=== PATIENT | male | born 1985 | race Caucasian/White ===

== ENCOUNTER 2020-03-13 09:27 | Emergency (ER) | payer SELFPAY ==
[~2020-03-13] VITALS: Ht 172.7 cm; Wt 113.6 kg
[2020-03-13 09:58] LABS: BASOPHILS % (AUTO) 0.4 % (0.0-2.0); EOSINOPHILS % (AUTO) 1.4 % (1.0-6.0); HEMATOCRIT 51.7 % (41-53); HEMOGLOBIN 17.3 g/dL (13.5-17.5); LYMPHOCYTES # (AUTO) 1.5 K/uL (1.0-4.8); MEAN CORPUSCULAR HEMOGLOBIN 30.2 pg (26.0-34.0); MEAN CORPUSCULAR HGB CONC 33.5 G/dL (31.0-37.0); MEAN CORPUSCULAR VOLUME 90 fL (80-100); MONOCYTES # (AUTO) 0.4 K/uL (0.1-1.0); MONOCYTES % (AUTO) 7.2 % (2.0-9.0); NEUTROPHILS # (AUTO) 3.1 K/uL (1.8-7.7); PLATELET COUNT (AUTO) 132 K/uL (150-450); RED BLOOD CELL COUNT(AUTO) 5.74 MIL/uL (4.50-5.90)
[2020-03-13 10:05] LABS: ANION GAP 10 mmol/L (8-16); CALCIUM, TOTAL 8.5 mg/dL (8.8-10.5); CARBON DIOXIDE 25 mmol/L (22-29); CHLORIDE 98 mmol/L (98-107); CREATININE 1.16 mg/dL (0.60-1.30); GLOMERULAR FILTR. RATE CALC > 60 mL/min (>60); GLUCOSE,RANDOM 289 mg/dL (70-110); POTASSIUM 3.2 mmol/L (3.5-5.1); SODIUM SERUM 133 mmol/L (136-145); UREA NITROGEN, BLOOD 14 mg/dL (7-18)
[2020-03-13 10:10] LABS: ALANINE AMINOTRANSFERASE 49 U/L (12-78); ALBUMIN 3.9 g/dL (3.4-5.0); ALKALINE PHOSPHATASE 75 U/L (46-116); ASPARTATE AMINOTRANSFERASE 20 U/L (15-37); BILIRUBIN,TOTAL 0.7 mg/dL (0.1-1.0); TOTAL PROTEIN, SERUM 7.2 g/dL (6.4-8.2)
[2020-03-13 11:28] VITALS: BP 130/86
== END 2020-03-13 12:15 | disposition home or self-care (01) ==
LOC: EMS 09:29
DX: R56.9 Unspecified convulsions (principal); R73.9 Hyperglycemia, unspecified
CPT/HCPCS: 36415; 70450; 80053; 85025; 99284; G0480

== ENCOUNTER 2020-06-24 06:29 | Emergency (ER) | payer MEDICAID ==
[~2020-06-24] VITALS: Ht 167.6 cm; Wt 109.1 kg
[2020-06-24] MEDS ORDERED: METF-960 PO (06:57)
[2020-06-24] MEDS ORDERED: LevETIRAcetam 1,000 MG in DEXTROSE 5%-WATER 100 ML IV ONE (07:00)
[2020-06-24 07:39] LABS: ANION GAP 8 mmol/L (8-16); CALCIUM, TOTAL 8.6 mg/dL (8.8-10.5); CARBON DIOXIDE 27 mmol/L (22-29); CHLORIDE 100 mmol/L (98-107); CREATININE 0.83 mg/dL (0.60-1.30); GLOMERULAR FILTR. RATE CALC > 60 mL/min (>60); GLUCOSE,RANDOM 229 mg/dL (70-110); POTASSIUM 3.5 mmol/L (3.5-5.1); SODIUM SERUM 135 mmol/L (136-145); UREA NITROGEN, BLOOD 11 mg/dL (7-18)
[2020-06-24 08:48] VITALS: BP 112/75
== END 2020-06-24 08:54 | disposition home or self-care (01) ==
LOC: EMS 06:31
DX: G40.909 Epilepsy, unspecified, not intractable, without status epilepticus (principal); E11.9 Type 2 diabetes mellitus without complications; Z88.0 Allergy status to penicillin; Z79.84 Long term (current) use of oral hypoglycemic drugs
CPT/HCPCS: 36415; 80048; 82962; 96374; 99284; J0712; J7060

== ENCOUNTER 2021-05-07 07:43 | Emergency (ER) | payer MEDICAID ==
[~2021-05-07] VITALS: Ht 175.3 cm; Wt 106.0 kg
[~2021-05-07 07:43] MED LIST: METF-960 PO
[2021-05-07] MEDS ORDERED: LevETIRAcetam 1,000 MG in DEXTROSE 5%-WATER 100 ML IV ONE (08:15)
[2021-05-07] MEDS ORDERED: SODIUM CHLORIDE 0.9% 1,000 ML IV ONE (08:15)
[2021-05-07] MEDS ORDERED: LORazepam 2 MG/ML VIAL IVP ONE (08:15)
[2021-05-07 08:41] LABS: BASOPHILS % (AUTO) 0.3 % (0.0-2.0); HEMATOCRIT 51.1 % (41-53); HEMOGLOBIN 17.8 g/dL (13.5-17.5); LYMPHOCYTES # (AUTO) 1.2 K/uL (1.0-4.8); LYMPHOCYTES % (AUTO) 16.4 % (22.0-44.0); MEAN CORPUSCULAR HEMOGLOBIN 31.7 pg (26.0-34.0); MEAN CORPUSCULAR HGB CONC 34.9 G/dL (31.0-37.0); MEAN CORPUSCULAR VOLUME 91 fL (80-100); MONOCYTES # (AUTO) 0.3 K/uL (0.1-1.0); MONOCYTES % (AUTO) 3.9 % (2.0-9.0); NEUTROPHILS # (AUTO) 5.9 K/uL (1.8-7.7); NEUTROPHILS % (AUTO) 78.4 % (40.0-70.0); PLATELET COUNT (AUTO) 125 K/uL (150-450); RED BLOOD CELL COUNT(AUTO) 5.62 MIL/uL (4.50-5.90); RED CELL DISTRIBUTION WIDTH 12.6 % (11.5-14.5)
[2021-05-07 08:50] LABS: ANION GAP 15 mmol/L (8-16); CALCIUM, TOTAL 8.6 mg/dL (8.8-10.5); CARBON DIOXIDE 21 mmol/L (22-29); CHLORIDE 103 mmol/L (98-107); GLOMERULAR FILTR. RATE CALC > 60 mL/min (>60); GLUCOSE,RANDOM 299 mg/dL (70-110); POTASSIUM 3.8 mmol/L (3.5-5.1); SODIUM SERUM 139 mmol/L (136-145); UREA NITROGEN, BLOOD 12 mg/dL (7-18)
[2021-05-07 08:56] LABS: ALANINE AMINOTRANSFERASE 230 U/L (12-78); ALBUMIN 4.2 g/dL (3.4-5.0); ALKALINE PHOSPHATASE 122 U/L (46-116); ASPARTATE AMINOTRANSFERASE 89 U/L (15-37); BILIRUBIN,TOTAL 0.4 mg/dL (0.1-1.0); TOTAL PROTEIN, SERUM 8.1 g/dL (6.4-8.2)
[2021-05-07 10:30] VITALS: BP 131/70
== END 2021-05-07 11:23 | disposition home or self-care (01) ==
LOC: EMS 07:43
DX: E11.65 Type 2 diabetes mellitus with hyperglycemia (principal); G40.909 Epilepsy, unspecified, not intractable, without status epilepticus; R79.89 Other specified abnormal findings of blood chemistry; R41.82 Altered mental status, unspecified; Z88.0 Allergy status to penicillin
CPT/HCPCS: 36415; 80053; 85025; 93005; 96361; 96374; 96375; 99284; G0480; J0712; J2060; J7060